=== PATIENT | female | born 1970 | race Caucasian/White ===

== ENCOUNTER 2017-03-23 18:34 | Emergency (ER) | payer MEDICAID ==
[2017-03-23 18:48] VITALS: TEMP 98.6; O2SAT 98
--- NOTE | 2017-03-23 18:59 | EDPHY ---
H & P Stated Complaint: headache since this am --"feels like usual migraine" no trauma Time Seen by Provider: 03/23/17 18:58 - Personal History LMP (Females 10-55): 22-28 Days Ago Current Tetanus/Diphtheria Vaccine: Unsure Current Tetanus Diphtheria and Acellular Pertussis (TDAP): Unsure - Medical/Surgical History Hx Asthma: No Hx Chronic Respiratory Disease: No Hx Diabetes: No Hx Cardiac Disease: No Hx Renal Disease: No Hx Cirrhosis: No Hx Alcoholism: No Hx HIV/AIDS: No Hx Splenectomy or Spleen Trauma: No Other PMH: migraines. hyperlipidemia. osteoarthritis - Social History Smoking Status: Current every day smoker Constitutional: Initial Vital Signs Temperature (C) 37.0 C 03/23/17 18:46 Heart Rate 81 03/23/17 18:46 Respiratory Rate 18 03/23/17 18:46 Blood Pressure 109/83 H 03/23/17 18:46 O2 Sat (%) 98 03/23/17 18:46 O2 Delivery Mode Room Air Allergies/Adverse Reactions: ondansetron [From Zofran (as hydrochloride)] Allergy (Verified 03/23/17 18:43) trazodone Allergy (Verified 03/23/17 18:43) Home Medications: Medication Instructions Recorded Atorvastatin Calcium 03/23/17 Doxepin HCl 03/23/17 GABAPENTIN 03/23/17 Propranolol HCl 03/23/17 Topamax 03/23/17 Medical Decision Making ED Course/Re-evaluation: CHIEF COMPLAINT: Migraine HISTORY OF PRESENT ILLNESS: The patient is a 46 y/o female with a history of migraines arriving from the [facility] complaining of a typical migraine onset this morning. She normally controls her headaches with abortive migraine medication, but she has already used her allotted 8 pills for the month. This headache is exactly the same as prior migraines. She denies head trauma, weakness, paresthesias, neck pain, fever, or other new symptoms. REVIEW OF SYSTEMS: A 10 point review of systems was performed and is negative with the exception of the elements mentioned in the history of present illness. PHYSICAL EXAM: HR, BP, O2 Sat, RR. Temp noted General Appearance: Alert, well hydrated, appropriate, and non-toxic appearing. Head: Atraumatic without scalp tenderness or obvious injury Eyes: Pupils equal, round, reactive to light and accommodation, EOMI, no trauma , no injection. Nose: Atraumatic, no rhinorrhea, clear. Throat: Mucus membranes moist. Neck: Supple, nontender, no lymphadenopathy. Respiratory: No retractions, no distress, no wheezes, and no accessory muscle use. Lungs are clear to auscultation bilaterally. Cardiovascular: Regular rate and rhythm, no murmurs, rubs, or gallops. Good capillary refill all extremities. Gastrointestinal: Abdomen is soft, nontender, non-distended, no masses, no rebound, no guarding, no peritoneal signs. Musculoskeletal: Normal active ROM of all extremities, atraumatic. Neurological: Alert, appropriate, and interactive. Nonfocal neuro exam. Skin: No rashes, good turgor, no nodules on palpation. Past medical history: Migraines Past surgical history: noncontributory Family history: noncontributory Social history: arrives from the [facility]. DIFFERENTIAL DIAGNOSIS: The differential diagnosis for the patient's headache included but was not limited to subarachnoid hemorrhage, migraine headache, tension headache and infectious causes such as meningitis, pharyngitis and sinusitis. MEDICAL DECISION MAKING: This is a 46 y/o female with a history of migraines who presents with a typical migraine. No new symptoms compared with previous migraines. She is neurovascularly intact. No indication for imaging at this time. Plan for symptom management only with IV and migraine cocktail. Reassessed patient. She is feeling improved and ready to go home. I've advised her to follow up with her neurologist for unimproved symptoms over the next few days. She is comfortable with this plan. Departure - Departure Disposition: Home, Routine, Self-Care Clinical Impression: Migraine Qualifiers: Migraine type: other Status migrainosus presence: without status migrainosus Intractability: not intractable Qualified Code(s): G43.809 - Other migraine, not intractable, without status migrainosus Condition: Good Instructions: Migraine Headache (ED) Additional Instructions: Follow up with your neurologist as needed for migraine management. Return for worsening of condition. Referrals: Salvatore Richter DO [Medical Doctor] - As per Instructions Report Scribed for: Hari Woods Report Scribed by: Jil Gonzalez Date of Report: 03/23/17 Time of Report: 19:06
[2017-03-23] MEDS ORDERED: DEXAMETHASONE 10 MG/ML VIAL IVP ONE (19:02)
[2017-03-23] MEDS ORDERED: METOCLOPRAMIDE 10 MG/2 ML VIAL IVP ONE (19:02)
[2017-03-23] MEDS ORDERED: KETOROLAC 30 MG/1 ML SDV IVP ONE (19:02)
[2017-03-23] MEDS ORDERED: NS 1,000 ML IV ONE (19:02)
[2017-03-23 21:29] VITALS: BP 117/77; PULSE 80; RESP 14
== END 2017-03-23 21:29 | disposition home or self-care (01) ==
DX: G43.809 Other migraine, not intractable, without status migrainosus (principal); F17.200 Nicotine dependence, unspecified, uncomplicated; E86.9 Volume depletion, unspecified
CPT/HCPCS: 96374; J1100; J1200; J1885; J2765